=== PATIENT | female | born 1960 | race Caucasian/White ===

== ENCOUNTER 2017-11-16 13:26 | Emergency (ER) | payer SELFPAY | END 2017-11-16 14:45 | disposition left against medical advice (07) | LOC: UCEAST 13:26 | DX: S69.90XA Unspecified injury of unspecified wrist, hand and finger(s), initial encounter (principal); Z53.21 Procedure and treatment not carried out due to patient leaving prior to being seen by health care provider ==

== ENCOUNTER 2019-10-04 11:31 | Emergency (ER) | payer BC ==
--- OUTSIDE RECORDS SUMMARY | 2019-10-04 11:36 | XMS REPORT | Continuity of Care Document ---
:1960 External Reference #:[id number] Author Name Prosper Zurita MD (transmitted by agent of provider Leelee Ordonez) Address [address], [place] [address] Care Team Providers Name Role Phone Marques King MD - Family Care Team Information [employer] Medicine Problems Active Problems Provider Date Current tear of medial cartilage AND/OR meniscus Prsoper Zurita MD Onset: 04/2018 of knee Localized, primary osteoarthritis Prosper Zurita MD Onset: 05/08/2018 Social History Type Date Description Comments Sex Unknown ETOH Use Occasionally consumes alcohol Tobacco Use Start: Unknown End: Patient is a former quit 2010 Unknown smoker Recreational Drug Use Denies Drug Use Smoking Status Reviewed: 09/12/19 Patient is a former quit 2011 smoker Exercise Type/Frequency Exercises regularly gym 4 days per week, 1.5 hours each, cardio 30 minutes, yoga 30 minutes and strength 30 minutes. Pt walks at least 2 days weekly for 30 minutes Allergies, Adverse Reactions, Alerts Active Allergies Reaction Severity Comments Date Erythromycin nausea and vomitting 08/02/2013 Latex red swelling 05/08/2018 Gluten GI issues 05/22/2019 Dairy Ease GI 05/22/2019 Medications Active Medications SIG Qnty Indications Ordering Date Provider Plain Niacin occasionally Unknown 500mg Tablets Metformin HCL ER 1 by mouth every day Unknown (Mod) 500mg Tablets ER 24HR Aspirin 81 1 by mouth every day Unknown 81mg Tablets DR Lysine 1 by mouth every day Unknown 500mg Capsules Metaxalone take 1 tablet 3 times Unknown 800mg a day as needed Tablets Resveratrol 1 tablet daily Unknown 100mg Capsules Turmeric Curcumin 1 capsules daily Unknown 500mg Capsules C[place]aw 1 daily in winter Unknown 400mg only Capsules Proair HFA 2 puffs every 4 hours Unknown as needed 108(90Base) mcg/Act Aerosol Bystolic 1 by mouth every day Unknown 5mg Tablets Fluticasone 2 sprays each nostril Unknown Propionate qd. prn 50mcg/Act Suspension Viyda Allergy 1 by mouth every day Unknown 180mg prn Tablets Flecainide Acetate 1 by mouth twice a Unknown day as needed 100mg Tablets Vitamin B Complex 1 by mouth every day Unknown Tablets [place] 3 1 by mouth qd. Unknown 1000mg Capsules Vitamin E 1 by mouth every day Unknown 400Unit Capsules Vitamin D3 1 by mouth every day Unknown 1000Unit Capsules Vitamin C 1 tab by mouth once Unknown 1000mg daily Tablets Tylenol as needed Unknown 325mg Tablets Nabumetone take one Unknown 750mg capsule/tablet by Tablets mouth twice daily as needed for pain, please stop other nsaids Aleve prn Unknown 220mg Tablets History Medications Trulicity inject 0.75mg 2ml E11.65 Buzz Hager MD 03/21/2019 - 0.75mg/0.5ML once weekly for 05/21/2019 Solution Pen-Inject 1 month Medications Administered in Office Medication SIG Qnty Indications Ordering Provider Date Injection Hyaluronan Or DerivativeProsper MD 11/22/2018 Euflexxa Per Dose Injection Injection Hyaluronan Or DerivativeProsper MD 11/15/2018 Euflexxa Per Dose Injection Injection Hyaluronan Or DerivativeProsper MD 11/06/2018 Euflexxa Per Dose Injection No Injection Prosper Zurita MD 05/10/2018 Injection Triamcinolone (Kenalog) Prosper Zurita MD 05/10/2018 Injection Immunizations Description No Information Available Vital Signs Date Vital Result Comment 09/12/2019 10:35am Height 69 inches 5'9" Weight 190.00 lb Heart Rate 64 /min BP Systolic 120 mmHg BP Diastolic 70 mmHg Respiratory Rate 18 /min Pain Level 5 BMI (Body Mass Index) 28.1 kg/m2 05/29/2019 1:38pm Height 69 inches 5'9" BP Systolic 122 mmHg BP Diastolic 82 mmHg Pain Level 3 Results Test Acquired Date Facility Test Result H/L Range Note Laboratory test 08/28/2019 [facility] Hemoglobin A1c 6.2 % High 4.0-5.6 1 finding 101 (Glyco HGB) [place] [address] [phone] Comp Metabolic 08/28/2019 [facility] Sodium 140 mmol/L Normal 135-145 Panel [address] [place] [address] [phone] Potassium 4.1 mmol/L Normal 3.5-5.0 Chloride 107 mmol/L Normal 101-111 Co2 Carbon Dioxide 27 mmol/L Normal 22-32 Anion Gap 6 mmol/L Normal 2-11 Glucose 136 mg/dL High 70-100 Blood Urea Nitrogen 16 mg/dL Normal 6-24 Creatinine 0.86 mg/dL Normal 0.51-0.95 BUN/Creatinine Ratio 18.6 Normal 8-20 Calcium 9.3 mg/dL Normal 8.6-10.3 Total Protein 6.4 g/dL Normal 6.4-8.9 Albumin 4.3 g/dL Normal 3.2-5.2 Globulin 2.1 g/dL Normal 2-4 Albumin/Globulin Ratio 2.0 Normal 1-3 Total Bilirubin 0.50 mg/dL Normal 0.2-1.0 Alkaline Phosphatase 84 U/L Normal 34-104 Alt 28 U/L Normal 7-52 Ast 18 U/L Normal 13-39 Egfr Non- 67.5 >60 Egfr 81.7 >60 2 Lipid Profile 08/28/2019 [facility] Triglycerides 145 mg/dL 3 (Trig/Chol/HDL) [address] [place] [address] [phone] Cholesterol 217 mg/dL 4 HDL Cholesterol 37.0 mg/dL 5 LDL Cholesterol 151 mg/dL 6 Laboratory test 03/21/2019 [facility] Glucose 116 mg/dL High 70-100 finding [address] [place] [address] [phone] C-Peptide 6.0 ng/mL Abnormal 1.1 - 4.4 7 Glutamic Acid Decarboxylase 0.00 nmol/L <= 0.02 8 Transglutaminase Igg 03/21/2019 [facility] Tissue <1.2 9 & Iga [address] Transglutaminase IgA U/[place] [address] Ab [phone] Tissue Transglutaminase IgG Ab 2.7 U/mL 10 1 Therapeutic target for the treatment of diabetes mellitus patients is <7% HBA1C, and in selective patients <6.0%. Please refer to [place] [employer] diabetic care guidelines for further information. 2 Because ethnic data is not always readily available, this report includes an eGFR for both -Americans and non- Americans. The National Kidney Disease Education Program (NKDEP) does not endorse the use of the MDRD equation for patients that are not between the ages of 18 and 70, are , have extremes of body size, muscle mass, or nutritional status, or are non- or non-. According to the National Kidney Foundation, irrespective of diagnosis, the stage of the disease is based on the level of kidney function: Stage Description GFR(mL/min/1.73 m(2)) 1 Kidney damage with normal or decreased GFR 90 2 Kidney damage with mild decrease in GFR 60-89 3 Moderate decrease in GFR 30-59 4 Severe decrease in GFR 15-29 5 Kidney failure <15 (or dialysis) 3 Desirable: <150 Borderline High: 150-199 High: 200-499 Very High: >500 4 Desirable: <200 Borderline High: 200-239 High: >239 5 Low: <40 Desirable: 40-60 High: >60 6 Desirable: <100 Near Optimal: 100-129 Borderline High: 130-159 High: 160-189 Very High: >189 7 Test Performed by: [facility] depict - [facility] [address] [place] [address] 8 ADDITIONAL INFORMATION This test was developed and its performance characteristics determined by [facility] in a manner consistent with CLIA requirements. This test has not been cleared or approved by the U.S. Food and Drug Administration. Test Performed by: [facility] - [facility] [address] [place] [address] 9 REFERENCE VALUE <4.0 (Negative) 10 REFERENCE VALUE <6.0 (Negative) Test Performed by: [facility] - [facility] [address] [place] [address] Procedures Description No Information Available Medical Devices Description No Information Available Encounters Type Date Location Provider Dx Diagnosis Office Visit 05/29/2019 [facility] M51.36 Other intervertebral 1:30p Services Of Katelyn Beaulieu MD disc degeneration, lumbar region M51.27 Other intervertebral disc displacement, lumbosacral region Office Visit 05/22/2019 [facility] Buzz Hager, E11.65 Type 2 diabetes 9:20a Endocrinology of mellitus with [facility] hyperglycemia Z79.84 [facility] (current) use of oral hypoglycemic drugs R63.5 Abnormal weight gain Office Visit 03/21/2019 [facility] and Buzz Haegr, Z79.84 long-term 2:00p Endocrinology of (current) use of [facility] oral hypoglycemic drugs E11.65 Type 2 diabetes mellitus with hyperglycemia R63.5 Abnormal weight gain Assessments Date Code Description Provider 09/12/2019 M17.12 Unilateral primary osteoarthritis, left Prosper Zurita MD knee 09/12/2019 S83.232A Complex tear of medial meniscus, current Prosper Zurita MD injury, left knee, 05/29/2019 M51.36 Other intervertebral disc degeneration, Gabrielle Beaulieu MD lumbar region 05/29/2019 M51.27 Other intervertebral disc displacement, Gabrielle Beaulieu MD lumbosacral region 05/22/2019 E11.65 Type 2 diabetes mellitus with Buzz Hager MD hyperglycemia 05/22/2019 Z79.84 [facility] [employer] [facility] (current) use of herbert Hager MD hypoglycemic drugs 05/22/2019 R63.5 Abnormal weight gain Buzz Hager MD 03/21/2019 Z79.84 long-term (current) use of oral Buzz Hager MD hypoglycemic drugs 03/21/2019 E11.65 Type 2 diabetes mellitus with Buzz Hager MD hyperglycemia 03/21/2019 R63.5 Abnormal weight gain Buzz Hager MD Plan of Treatment Future Appointment(s):10/30/2019 1:20 pm - Buzz Hager MD at [facility]12/13/2019 9:00 am - Gabrielle Beaulieu MD at [facility]10/11/2019 11:00 am - Duglas Gonzalez M.D. at [facility]11/18/2019 10:30 am - Daniel Burns M.D. at [facility]09/12/2019 - JANETTE Keen17.12 Unilateral primary osteoarthritis, left kneeFollow up:Follow up: pls use [id number] Complex tear of medial meniscus, current injury, left knee, Functional Status Description No Information Available Mental Status Description No Information Available Referrals Refer to Dr Reason for Referral Status Appt Date Marques Florentino MD [address] [place] [address] [phone] Raghav Boone MD Sent [address] [facility] [address] [place], [place] [address] [phone]
[2019-10-04 12:24] VITALS: BP 111/67
--- NOTE | 2019-10-04 12:25 | UC ---
Eye Complaint HPI - HPI Summary HPI Summary: 59 yo female presents with cold symptoms. She tells me that over the last 7-10 days she has had sinus congestion and intermittent left ear pain. Over the last 2 days her left ear pain has gotten worse. This morning she woke up and her b/l eyes were red, watery, and crusted shut. She has been taking OTC cold medicine with little relief. Denies fever, chills, sore throat, rash, n/v - History of Current Complaint Chief Complaint: UCEye Stated Complaint: EYE COMPLAINT Time Seen by Provider: 10/04/19 12:24 Hx Obtained From: Patient Onset/Duration: Gradual Onset Severity Initially: Mild Severity Currently: Moderate Pain Intensity: 5 Pain Scale Used: 0-10 Numeric - Allergies/Home Medications Allergies/Adverse Reactions: Allergies Allergy/AdvReac Type Severity Reaction Status Date / Time erythromycin base Allergy Vomiting Verified 10/04/19 12:24 latex Allergy Hives Verified 10/04/19 12:24 SCALLOPS Allergy DIFFICULTY Uncoded 10/04/19 12:24 BREATHING-FELT LIKE THROAT WAS CLOSING Home Medications: Home Medications DULoxetine DR SALAZAR* [Cymbalta CAP*] 20 mg PO DAILY 10/04/19 [History Confirmed ] PMH/Surg Hx/FS Hx/Imm Hx Endocrine History: Diabetes Cardiovascular History: Cardiac Disease, Hypertension Psychological History: Anxiety, Depression - Surgical History Surgical History: Yes Surgery Procedure, Year, and Place: SMALL NEEDLE FRAG. IN RT BREAST/WILL ADVISE OF DISCOMFORT/OK TO SCAN PER DR ERICKSON- 1.5T ( STEPPED ON NEEDLE A CHILD AND OVER YRS IT HAS TRAVEL THROUGH BODY TO BREAST). CERVICAL SPINE FUSION 1992. T & A CHILD. PARTIAL VOLVECTOMY 2010. - Family History Known Family History: Positive: Cardiac Disease, Hypertension, Other - NO HX DVT - Social History Lives: With Family Alcohol Use: Occasionally Alcohol Amount: 1-2 every few weeks Substance Use Type: Marijuana Substance Use Comment - Amount & Last Used: daily Smoking Status (MU): Former Smoker Type: Cigarettes Length of Time of Smoking/Using Tobacco: 53 yrs Have You Smoked in the Last Year: No - Immunization History Most Recent Tetanus Shot: 2013 Review of Systems All Other Systems Reviewed And Are Negative: No Constitutional: Positive: Negative Skin: Positive: Negative Eyes: Positive: Drainage, Eye Redness ENT: Positive: Nasal Discharge, Sinus Congestion, Sinus Pain/Tenderness Respiratory: Positive: Negative Cardiovascular: Positive: Negative Gastrointestinal: Positive: Negative Neurological: Positive: Negative Psychological: Positive: Negative Physical Exam - Summary Physical Exam Summary: GENERAL: NAD. WDWN. No pain distress. SKIN: No rashes, sores, lesions, or open wounds. HEENT: Head: AT/NC Eyes: EOM intact. Conjunctiva clear without inflammation or discharge. Ears: Hearing grossly normal. LEFT TM with mild erythema and bulging. No canal edema or drainage. RIGHT TM WNL and intact Nose: Nasal mucosa pink and moist. NTTP maxillary and frontal sinus. Throat: Posterior oropharynx without exudates, erythema, or tonsillar enlargement. Uvula midline. NECK: Supple. Nontender. No lymphadenopathy. CHEST: CTAB. No r/r/w. No accessory muscle use. Breathing comfortably and in no distress. CV: RRR. Without m/r/g. Pulses intact. NEURO: Alert. PSYCH: Age appropriate behavior. Triage Information Reviewed: Yes Vital Signs: Initial Vital Signs Temp 97.7 F 10/04/19 12:17 Pulse 70 10/04/19 12:17 Resp 18 10/04/19 12:17 BP 111/67 10/04/19 12:17 Pulse Ox 95 10/04/19 12:17 Vital Signs Reviewed: Yes Eye Complaint Course/Dx - Course Course Of Treatment: otitis media Suspect allergic conjunctivitis as her eyes appear normal today - Differential Dx/Diagnosis Provider Diagnosis: Otitis media Discharge ED - Sign-Out/Discharge Documenting (check all that apply): Patient Departure All imaging exams completed and their final reports reviewed: No Studies - Discharge Plan Condition: Stable Disposition: HOME Prescriptions: Amoxicillin PO (*) [Amoxicillin 875 MG (*)] 875 mg PO BID #14 tab Patient Education Materials: Ear Infection (ED) Referrals: Marques King MD [Primary Care Provider] - Additional Instructions: If you develop a fever, shortness of breath, chest pain, new or worsening symptoms - please call your PCP or go to the ED immediately. I recommend trying an [id number] eye drop with an antihistamine such as visine for your eyes. - Billing Disposition and Condition Condition: STABLE Disposition: Home
== END 2019-10-04 12:49 | disposition home or self-care (01) ==
LOC: UCEAST 11:31
DX: H66.92 Otitis media, unspecified, left ear (principal); E11.9 Type 2 diabetes mellitus without complications; F41.9 Anxiety disorder, unspecified; I10 Essential (primary) hypertension; F32.9 Major depressive disorder, single episode, unspecified; J34.89 Other specified disorders of nose and nasal sinuses; H57.89 Other specified disorders of eye and adnexa; Z79.899 Other long term (current) drug therapy; Z87.891 Personal history of nicotine dependence; Z88.1 Allergy status to other antibiotic agents; Z91.040 Latex allergy status; Z91.013 Allergy to seafood
CPT/HCPCS: 99212; G0463